=== PATIENT | female | born 1990 | race Caucasian/White ===

== ENCOUNTER 2019-10-20 10:49 | Emergency (ER) | payer BC, OTHER ==
[2019-10-20] MEDS ORDERED: Ibuprofen 800 MG Tab PO ONE (10:54)
[2019-10-20] MEDS ORDERED: Cyclobenzaprine 10 MG Tab PO ONE (10:54)
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
--- NOTE | 2019-10-20 12:06 | CR ---
Cervical spine: AP, lateral and odontoid views of the cervical spine were obtained. C7 and T1 not evaluated on the lateral view. Other disc spaces and vertebral body heights are maintained. Prevertebral soft tissues are normal. No subluxation or fracture is appreciated. Impression: 1. C7 and T1 not evaluated (not seen) on the lateral view. 2. Other portions of the 3 view cervical spine exam appear unremarkable. Diagnostic code #2 This report was dictated in [place] Standard Time
== END 2019-10-20 12:10 | disposition home or self-care (01) ==
LOC: MW.ED 10:49
DX: S16.1XXA Strain of muscle, fascia and tendon at neck level, initial encounter (principal); V49.40XA Driver injured in collision with unspecified motor vehicles in traffic accident, initial encounter
CPT/HCPCS: 72040; 99283; A9270

== ENCOUNTER 2020-03-21 16:26 | Emergency (ER) | payer BC, OTHER ==
[2020-03-21] MEDS ORDERED: Sodium Chloride 0.9% 10 ML Syringe FLUSH PRN (16:54)
[2020-03-21] MEDS ORDERED: Sodium Chloride 0.9% 2.5 ML Syringe FLUSH PRN (16:54)
--- NOTE | 2020-03-21 16:56 | EDM.PDOC ---
ED HPI GENERAL MEDICAL PROBLEM - General Chief Complaint: Neuro Symptoms/Deficits Stated Complaint: TROUBLE SPEAKING,SPOTTY VISION Time Seen by Provider: 03/21/20 16:28 Source of Information: Reports: Patient History Limitations: Reports: No Limitations - History of Present Illness INITIAL COMMENTS - FREE TEXT/NARRATIVE: This is a 30-year-old female with past medical history of Guilbert syndrome presenting with about 30 minutes prior to arrival, the patient was working at her job when she had difficulty with word finding. She was able to form words but was essentially speaking word salad, with inappropriately formed sentences. This lasted for about 5 minutes. It was preceded by a brief period where her vision was blurry in both eyes. Symptoms resolved prior to arrival. Here in the emergency department she has no complaints of any ongoing neurologic changes. She denies any headache, neck pain, recent head or neck trauma anticoagulation use, facial or extremity numbness or weakness, facial droop, or impaired coordination or gait. - Related Data Allergies Allergy/AdvReac Type Severity Reaction Status Date / Time No Known Allergies Allergy Verified 03/21/20 16:47 Home Meds: Home Meds Cyclobenzaprine [Flexeril] 10 mg PO TID PRN #21 tab 10/20/19 [Rx] Diclofenac Sodium [Voltaren] 75 mg PO BIDMEALS PRN #20 tab.cr 10/20/19 [Rx] Aspirin 325 mg PO DAILY #30 tab 03/21/20 [Rx] Past Medical History Gastrointestinal History: Reports: Other (See Below) Other Gastrointestinal History: Gilbert syndrome - Infectious Disease History Infectious Disease History: Reports: None - Past Surgical History GI Surgical History: Reports: Appendectomy Social & Family History - Family History Family Medical History: Noncontributory - Caffeine Use Caffeine Use: Reports: None ED ROS GENERAL - Review of Systems Review Of Systems: See Below Constitutional: Denies: Fever HEENT: Reports: Vision Change. Denies: Ear Discharge, Ear Pain, Eye Discharge, Eye Pain, Hearing Loss, Vertigo Respiratory: Denies: Shortness of Breath Cardiovascular: Denies: Chest Pain GI/Abdominal: Denies: Nausea, Vomiting : Denies: Flank Pain Musculoskeletal: Denies: Neck Pain, Back Pain Skin: Denies: Rash Neurological: Reports: Trouble Speaking, Change in Speech. Denies: Confusion, Numbness, Paresthesia, Pre-Existing Deficit, Seizure, Tingling, Difficulty Walking, Weakness, Gait Disturbance ED EXAM, NEURO - Physical Exam Exam: See Below Text/Narrative:: Vital signs reviewed. Nursing notes reviewed. Constitutional: Awake, alert, non-distressed. Head: Normocephalic, atraumatic. Eyes: EOMI, conjunctiva normal, no discharge, no scleral icterus. Ears, Nose, Throat: External ears and nose normal, moist oral mucosa. Cardiovascular: 2+ radial pulse, capillary refill less than 2 seconds. No carotid bruits. Pulmonary: normal work of breathing, no accessory muscle use. CTA BL Abdomen/GI: Soft, nontender, nondistended, no guarding or rigidity, no masses. Musculoskeletal: No deformities. Integumentary: Appropriate color for ethnicity, warm, dry, no pallor or jaundice, no rash. Neurologic: Awake, alert, and oriented x3. Cranial nerves II through XII intact. No facial droop or dysarthria. No temporal artery tenderness. Supple neck with normal range of motion. No pronator drift. Normal [id number] and [id number]. No dysdiadochokinesia. 5/5 strength in all extremities. Sensation intact to light touch x4. Normal gait. Normal visual jade, no field cuts. Able to sit, stand, and ambulate without assistance. NIHSS score of zero. Psychiatric: Appropriate mood and affect, normal thought process. Exam Limited By: No Limitations EKG INTERPRETATION EKG Interpretation Comments: 12-Lead ECG Interpretation Acquired: 5:20 PM Rhythm: Sinus rhythm Rate: 77 bpm [place]: Normal Intervals: Normal Ectopy: None Ischemic Changes: None apparent RV Strain: No obvious RV strain pattern. ST Segments/T-Waves: No notable changes Interpretation: Unremarkable Course - Vital Signs Text/Narrative:: Patient hemodynamically stable, afebrile, well-appearing, looks nontoxic. Differential diagnosis includes but is not limited to: TIA, ischemic stroke, hemorrhagic stroke, postictal state, electrolyte disturbance, hyper or hypoglycemia, drug toxicity, complicated migraine, conversion disorder, demyelinating disease, etc. CBC, INR, PTT, electrolytes, renal function reassuring. Troponin negative. Mild total bilirubin elevation at 1.4 (history of Gilbert syndrome). Noncontrast head CT shows no hypodensities or blood. NIH score of 0 upon arrival to the ED. Noncontrast head CT and angiography of the head and neck were negative. Given her symptoms, I am concerned about a transient ischemic attack. I did repeatedly recommend hospitalization to be seen by neurology in the morning and also to obtain a diffusion-weighted MRI given that MRI is not available overnight. The patient states that she is unable to be kept in the hospital [facility] because she has 3 children at home and also is concerned about losing her job. She is unable to find anyone to watch her children tonight. Since the patient cannot stay in the hospital, we did have her sign out AGAINST MEDICAL ADVICE with a thorough discussion about the benefits and risks of continuing her stroke work-up here. I told her that she would need to have an urgent MRI and that typically this would be facilitated by an observation stay. The next best option is a next day appointment with the neurology clinic. We will make a referral for her through our hospital system. In the meantime we will have her start taking full dose aspirin, 324 mg daily. She was counseled to return to the emergency department immediately if her symptoms recurred or if she developed any new potential stroke symptoms. She voiced understanding of my discharge instructions and had no further questions. Disposition: discharged against medical advice. Last Recorded V/S: Last Vital Signs Temp 37.0 C 03/21/20 16:47 Pulse 101 H 03/21/20 16:47 Resp 15 03/21/20 16:47 BP 140/97 H 03/21/20 16:47 Pulse Ox 98 03/21/20 16:47 - Orders/Labs/Meds Orders: Active Orders 24 hr Category Date Time Status Assess Neurological Status [RC] CONTINUOUS Care 03/21/20 16:59 Active Cardiac Monitoring [RC] . DIRECTED Care 03/21/20 16:54 Active Communication Order [RC] STAT Care 03/21/20 16:59 Active EKG Documentation Completion [RC] STAT Care 03/21/20 16:54 Active NIH Stroke Scale [RC] STAT Care 03/21/20 16:59 Active Nursing Bedside Swallow Screen [RC] STAT Care 03/21/20 16:59 Active Pulse Oximetry [RC] ASDIRECTED Care 03/21/20 16:54 Active Ang Neck [CT] Routine Exams 03/21/20 Ordered Sodium Chloride 0.9% [Saline Flush] Med 03/21/20 16:54 Active 10 ml FLUSH ASDIRECTED PRN Sodium Chloride 0.9% [Saline Flush] Med 03/21/20 16:54 Active 2.5 ml FLUSH ASDIRECTED PRN Saline Lock Insert [OM.PC] Stat Oth 03/21/20 16:54 Ordered Medication Orders Sodium Chloride (Saline Flush) 10 ml FLUSH ASDIRECTED PRN PRN Reason: Keep Vein Open Last Admin: 03/21/20 17:22 Dose: 10 ml Documented by: RISSA Sodium Chloride (Saline Flush) 2.5 ml FLUSH ASDIRECTED PRN PRN Reason: Keep Vein Open Last Admin: 03/21/20 17:23 Dose: 2.5 ml Documented by: RISSA Labs: Laboratory Tests 03/21/20 03/21/20 03/21/20 Range/Units 16:41 16:44 16:44 WBC 9.50 (4.0-11.0) K/uL RBC 4.25 L (4.30-5.90) M/uL Hgb 13.9 (12.0-16.0) g/dL Hct 39.6 (36.0-46.0) % MCV 93.2 (80.0-98.0) fL MCH 32.7 H (27.0-32.0) pg MCHC 35.1 (31.0-37.0) g/dL RDW Std Deviation 41.9 (28.0-62.0) fl RDW Coeff of Florinda 12 (11.0-15.0) % Plt Count 331 (150-400) K/uL MPV 8.40 (7.40-12.00) fL Neut % (Auto) 61.4 (48.0-80.0) % Lymph % (Auto) 29.2 (16.0-40.0) % Bailey % (Auto) 8.1 (0.0-15.0) % Eos % (Auto) 1.1 (0.0-7.0) % Baso % (Auto) 0.2 (0.0-1.5) % Neut # (Auto) 5.8 H (1.4-5.7) K/uL Lymph # (Auto) 2.8 H (0.6-2.4) K/uL Bailey # (Auto) 0.8 (0.0-0.8) K/uL Eos # (Auto) 0.1 (0.0-0.7) K/uL Baso # (Auto) 0.0 (0.0-0.1) K/uL Nucleated RBC % 0.0 /100WBC Nucleated RBCs # 0 K/uL INR 1.01 APTT 26.4 (18.6-31.3) SEC Sodium (136-145) mmol/L Potassium (3.5-5.1) mmol/L Chloride (98-107) mmol/L Carbon Dioxide (21.0-32.0) mmol/L BUN (7.0-18.0) mg/dL Creatinine (0.6-1.0) mg/dL Est Cr Clr Drug Dosing mL/min Estimated GFR (MDRD) ml/min Glucose (74-106) mg/dL POC Glucose 89 (60-110) mg/dL Calcium (8.5-10.1) mg/dL Total Bilirubin (0.2-1.0) mg/dL AST (15-37) IU/L ALT (14-63) IU/L Alkaline Phosphatase (46-116) U/L Troponin I (0.000-0.056) ng/mL Total Protein (6.4-8.2) g/dL Albumin (3.4-5.0) g/dL Globulin (2.6-4.0) g/dL Albumin/Globulin Ratio (0.9-1.6) Triglycerides (0-200) mg/dL Cholesterol (50-200) mg/dL LDL Cholesterol, Calc (60-180) mg/dL VLDL Cholesterol (5-55) mg/dL HDL Cholesterol (40-60) mg/dL Cholesterol/HDL Ratio (3.3-6.0) HCG, Qual (NEG) 03/21/20 03/21/20 03/21/20 Range/Units 16:44 16:44 16:44 WBC (4.0-11.0) K/uL RBC (4.30-5.90) M/uL Hgb (12.0-16.0) g/dL Hct (36.0-46.0) % MCV (80.0-98.0) fL MCH (27.0-32.0) pg MCHC (31.0-37.0) g/dL RDW Std Deviation (28.0-62.0) fl RDW Coeff of Florinda (11.0-15.0) % Plt Count (150-400) K/uL MPV (7.40-12.00) fL Neut % (Auto) (48.0-80.0) % Lymph % (Auto) (16.0-40.0) % Bailey % (Auto) (0.0-15.0) % Eos % (Auto) (0.0-7.0) % Baso % (Auto) (0.0-1.5) % Neut # (Auto) (1.4-5.7) K/uL Lymph # (Auto) (0.6-2.4) K/uL Bailey # (Auto) (0.0-0.8) K/uL Eos # (Auto) (0.0-0.7) K/uL Baso # (Auto) (0.0-0.1) K/uL Nucleated RBC % /100WBC Nucleated RBCs # K/uL INR APTT (18.6-31.3) SEC Sodium 138 (136-145) mmol/L Potassium 3.8 (3.5-5.1) mmol/L Chloride 104 (98-107) mmol/L Carbon Dioxide 23.2 (21.0-32.0) mmol/L BUN 11 (7.0-18.0) mg/dL Creatinine 0.8 (0.6-1.0) mg/dL Est Cr Clr Drug Dosing 90.84 mL/min Estimated GFR (MDRD) > 60.0 ml/min Glucose 102 (74-106) mg/dL POC Glucose (60-110) mg/dL Calcium 9.5 (8.5-10.1) mg/dL Total Bilirubin 1.4 H (0.2-1.0) mg/dL AST 24 (15-37) IU/L ALT 20 (14-63) IU/L Alkaline Phosphatase 40 L (46-116) U/L Troponin I <0.050 (0.000-0.056) ng/mL Total Protein 7.9 (6.4-8.2) g/dL Albumin 4.1 (3.4-5.0) g/dL Globulin 3.8 (2.6-4.0) g/dL Albumin/Globulin Ratio 1.1 (0.9-1.6) Triglycerides 104 (0-200) mg/dL Cholesterol 161 (50-200) mg/dL LDL Cholesterol, Calc 99 (60-180) mg/dL VLDL Cholesterol 20 (5-55) mg/dL HDL Cholesterol 41 (40-60) mg/dL Cholesterol/HDL Ratio 3.9 (3.3-6.0) HCG, Qual NEGATIVE (NEG) Meds: Medications Generic Name Dose Route Start Last Admin Trade Name Freq PRN Reason Stop Dose Admin Sodium Chloride 10 ml 03/21/20 16:54 03/21/20 17:22 Saline Flush FLUSH 10 ml ASDIRECTED PRN Administration Keep Vein Open Sodium Chloride 2.5 ml 03/21/20 16:54 03/21/20 17:23 Saline Flush FLUSH 2.5 ml ASDIRECTED PRN Administration Keep Vein Open Discontinued Medications Generic Name Dose Route Start Last Admin Trade Name Freq PRN Reason Stop Dose Admin Aspirin 324 mg 03/21/20 17:24 03/21/20 17:34 Aspirin PO 03/21/20 17:25 324 mg ONETIME ONE Administration Departure - Departure Time of Disposition: 18:20 Disposition: Against Medical Advice 07 Condition: Good Clinical Impression: Transient ischemic attack (TIA) - Discharge Information *PRESCRIPTION DRUG MONITORING PROGRAM REVIEWED*: Not Applicable *COPY OF PRESCRIPTION DRUG MONITORING REPORT IN PATIENT ANABEL: Not Applicable Prescriptions: Aspirin 325 mg PO DAILY #30 tab Instructions: Transient Ischemic Attack, [id number] Referrals: Adore Oneill MD [Physician] - 1 Day (You need to ideally set up a next day appointment with the neurology clinic for reevaluation.) Forms: ED Department Discharge Additional Instructions: You were seen in the emergency department for stroke symptoms. I was concerned that you may be having a transient ischemic attack (TIA), or "mini stroke". We did recommend that you stay in the hospital overnight to be seen by the neurologist in the morning and have an MRI. At this point you are choosing to leave the emergency department AGAINST MEDICAL ADVICE. I would like for you to start taking a full dose aspirin daily (324 mg). You need to call the neurology clinic to set up the next day appointment ideally. You will also likely need to have an MRI performed to evaluate for stroke. If at any point you change your mind you can always return to the emergency department to continue your evaluation and treatment. Definitely come back to the ER right away if your symptoms recur or if you develop trouble speaking, trouble swallowing, visual changes, numbness or weakness in your face or your arms or legs, or if you have any other new or concerning symptoms. Thank you for choosing the [facility] emergency department in [place] for your medical needs today. It was a pleasure caring for you. Please return the emergency department immediately if your symptoms worsen or if you feel worse. The following information is given to patients seen in the emergency department who are being discharged. This information is to outline your options for follow-up care. We provide all patients seen in our emergency department with a follow-up referral. The need for follow-up, as well as the timing and circumstances, are variable depending upon the specifics of your emergency department visit. If you don't have a primary care physician on staff, we will provide you with a referral. We always advise you to contact your personal physician following an emergency department visit to inform them of the circumstance of the visit and for follow-up with them and/or the need for any referrals to a consulting specialist. The emergency department will also refer you to a specialist when appropriate. This referral assures that you have the opportunity for follow-up care with a specialist. All of these measure are taken in an effort to provide you with optimal care, which includes your follow-up. Under all circumstances we always encourage you to contact your private physician who remains a resource for coordinating your care. When calling for follow-up care, please make the office aware that this follow-up is from your recent emergency room visit. If for any reason you are refused follow-up, please contact the [facility] Emergency Department at and asked to speak to the emergency department charge nurse. If you do not have a primary care physician that is caring for you, you can contact these clinics below to set up an appointment to establish care: Katelyn Osorio [facility] - Primary Care [address] [place] [id number] [facility] [address] [place] [id number] Sepsis Event Note (ED) - Evaluation Sepsis Screening Result: No Definite Risk - Focused Exam Vital Signs: Vital Signs Temp Pulse Resp BP Pulse Ox 03/21/20 16:47 37.0 C 101 H 15 140/97 H 98 - My Orders Last 24 Hours: My Active Orders 03/21/20 Ang Neck [CT] Routine 03/21/20 16:54 Cardiac Monitoring [RC] . DIRECTED EKG Documentation Completion [RC] STAT Pulse Oximetry [RC] ASDIRECTED Sodium Chloride 0.9% [Saline Flush] 10 ml FLUSH ASDIRECTED PRN Sodium Chloride 0.9% [Saline Flush] 2.5 ml FLUSH ASDIRECTED PRN Saline Lock Insert [OM.PC] Stat 03/21/20 16:59 Assess Neurological Status [RC] CONTINUOUS Communication Order [RC] STAT NIH Stroke Scale [RC] STAT Nursing Bedside Swallow Screen [RC] STAT - Assessment/Plan Last 24 Hours: My Active Orders 03/21/20 Ang Neck [CT] Routine 03/21/20 16:54 Cardiac Monitoring [RC] . DIRECTED EKG Documentation Completion [RC] STAT Pulse Oximetry [RC] ASDIRECTED Sodium Chloride 0.9% [Saline Flush] 10 ml FLUSH ASDIRECTED PRN Sodium Chloride 0.9% [Saline Flush] 2.5 ml FLUSH ASDIRECTED PRN Saline Lock Insert [OM.PC] Stat 03/21/20 16:59 Assess Neurological Status [RC] CONTINUOUS Communication Order [RC] STAT NIH Stroke Scale [RC] STAT Nursing Bedside Swallow Screen [RC] STAT
[2020-03-21 17:16] LABS: BLOOD UREA NITROGEN,BUN 11 mg/dL (7.0-18.0); CARBON DIOXIDE,CO2 23.2 mmol/L (21.0-32.0); CHLORIDE,CL 104 mmol/L (98-107); GLUCOSE RANDOM 102 mg/dL (74-106); POTASSIUM,K 3.8 mmol/L (3.5-5.1); SODIUM,NA 138 mmol/L (136-145)
[2020-03-21] MEDS ORDERED: Aspirin 81 MG Tab.Chew PO ONE (17:24)
--- NOTE | 2020-03-21 17:53 | CT ---
CT angiogram of the brain Technique: Multiple axial sections through the brain were obtained. Intravenous contrast was utilized. Study performed during the arterial phase as a CT angiogram. Findings: Both distal vertebral arteries are patent into the basilar artery and into both posterior cerebral arteries. Carotid siphons are patent into the middle cerebral arteries and anterior cerebral arteries. No stenosis or occlusion is seen within the visualized cerebral arteries. No discrete aneurysm is appreciated. Impression: 1. No abnormality is identified on CT angiogram of the brain. Diagnostic code #1 This report was dictated in MDT
[2020-03-21] MEDS ORDERED: Iopamidol 755 Mg/ML 100 ML Bottle IVPUSH ONE (19:15)
== END 2020-03-21 18:33 | disposition left against medical advice (07) ==
LOC: MW.ED 16:26
DX: G45.9 Transient cerebral ischemic attack, unspecified (principal); Z79.82 Long term (current) use of aspirin
CPT/HCPCS: 36415; 70496; 80053; 80061; 82962; 84484; 84703; 85025; 85610; 85730; 93005; 99284; A9270; Q9967; 99283

== ENCOUNTER 2024-05-19 21:22 | Emergency (ER) | payer BC | END 2024-05-19 23:00 | disposition home or self-care (01) | LOC: MW.ED 21:22 | DX: K12.0 Recurrent oral aphthae (principal); Z90.49 Acquired absence of other specified parts of digestive tract | CPT/HCPCS: 99282 ==